=== PATIENT | male | born 1945 | race Caucasian/White ===

== ENCOUNTER → 2017-06-12 | Outpatient (CLI) | payer MEDICARE, BC ==
--- NOTE | 2017-06-12 11:31 | XCELERA REPORT ---
[address] [address] Lower Extremity Venous Evaluation Name: EVERETTE MONDRAGON Age: 71 yrs Gender: Male : 1945 Patient Status: Outpatient Patient Location: Study Date: 06/12/2017 10:36 AM Procedure: Color flow and duplex imaging of the veins of the left lower extremity as well as the right Common Femoral vein. Reason For Study: LLE EDEMA Ordering Physician: JANIA ROBERTS Performed By: Nancy Gore Right Sided Venous Evaluation The right common femoral vein is fully compressible. Spontaneous and phasic flow is present in the right common femoral vein. Left Sided Venous Evaluation Normal vessel filling wall to wall, compression and augmentation as well as Colour flow down to the infrageniculate veins. Interpretation Summary No duplex evidence of DVT or obstruction in the left lower extremity nor in the right Common Femoral vein. : JANIA ROBERTS > Loco Nam
--- NOTE | 2017-06-12 12:17 | RADIOLOGY REPORT (SQ) ---
EXAM DESCRIPTION: KNEE LEFT 4 VIEW COMPLETED DATE/TIME: 06/12/2017 11:28 am REASON FOR STUDY: EDEMA(R60.9),PAIN IN LEFT LEG(M79.605) R60.9 EDEMA, UNSPECIFIED M79.605 PAIN IN LEFT LEG COMPARISON: None. NUMBER OF VIEWS: Four views. TECHNIQUE: AP, lateral, and both oblique radiographic images acquired of the left knee. LIMITATIONS: None. FINDINGS: MINERALIZATION: Normal. BONES: No acute fracture or dislocation. No worrisome bone lesions. Prominent medial osteophytes. JOINT: No effusion. No chondrocalcinosis. OTHER: No other significant finding. IMPRESSION: Medial compartment osteoarthritis. TECHNICAL DOCUMENTATION: JOB ID: [id number] [employer]- All Rights Reserved
== END ==
LOC: SP 10:31
PROVIDERS: ATTEND Internal Medicine Medical Oncology
DX: M79.605 Pain in left leg (principal); M25.562 Pain in left knee; M17.12 Unilateral primary osteoarthritis, left knee; R60.9 Edema, unspecified
CPT/HCPCS: 93971

== ENCOUNTER → 2017-11-13 | Outpatient (CLI) | payer MEDICARE, BC ==
--- NOTE | 2017-11-13 15:38 | RADIOLOGY REPORT (SQ) ---
EXAM DESCRIPTION: ARTERIAL LOWER EXTREM BILAT COMPLETED DATE/TIME: 11/13/2017 3:22 pm REASON FOR STUDY: ULCER L97.222 NON-PRESSURE CHRONIC ULCER OF LEFT CALF W FAT LAYER COMPARISON: None. TECHNIQUE: Dynamic and static richmond scale and color images acquired of the lower extremity arteries. Additional selected spectral images recorded. ABIs recorded. LIMITATIONS: None. FINDINGS: RIGHT LEG: ABIS: Normal, over 1.0. INFLOW ARTERIES: Normal, no obstruction evident. FEMORAL ARTERIES:Multiphasic waveforms. Normal, no velocity elevation to suggest focal stenosis. Norm al color Doppler evaluation. No aneurysm. POPLITEAL ARTERY:Multiphasic waveforms. Normal, no velocity elevation to suggest focal stenosis. Norm al color Doppler evaluation. No aneurysm. PATENT TIBIOPERONEAL TRUNK AND 3 VESSEL RUNOFF: Yes, normal vessels. TBI: Not performed. OTHER: No other significant finding. LEFT LEG: ABIS: Normal, over 1.0. INFLOW ARTERIES: Normal, no obstruction evident. FEMORAL ARTERIES:Multiphasic waveforms. Normal, no velocity elevation to suggest focal stenosis. Norm al color Doppler evaluation. No aneurysm. POPLITEAL ARTERY:Multiphasic waveforms. Normal, no velocity elevation to suggest focal stenosis. Norm al color Doppler evaluation. No aneurysm. PATENT TIBIOPERONEAL TRUNK AND 3 VESSEL RUNOFF: Yes, normal vessels. TBI: Not performed. OTHER: Moderate size left Apple's cyst, about 5 x 3 cm in size. IMPRESSION: NORMAL BILATERAL LOWER EXTREMITY ARTERIAL DOPPLER WITH ABIs. COMMENT: [facility] NORMAL: Greater than 1.0 MINIMAL DISEASE: 0.9 to 1.0 CLAUDICATION: 0.5 to 0.9 SEVERE ARTERIAL DISEASE: Less than 0.5 [facility] NORMAL: Greater than 1.0 (1.2 If Heavy Calcifications) NORMAL TO MILD ISCHEMIA: 0.8 to 1.0 MODERATE ISCHEMIA: 0.4 to 0.8 SEVERE ISCHEMIA: Less than 0.4 TECHNICAL DOCUMENTATION: JOB ID: [id number]- All Rights Reserved
--- NOTE | 2017-11-13 15:43 | RADIOLOGY REPORT (SQ) ---
EXAM DESCRIPTION: VENOUS REFLUX COMPLETED DATE/TIME: 11/13/2017 3:22 pm REASON FOR STUDY: ULCER L97.222 NON-PRESSURE CHRONIC ULCER OF LEFT CALF W FAT LAYER COMPARISON: None. TECHNIQUE: Multiple real-time grayscale sonographic images were obtained for evaluation of the right and left lower extremity. Doppler and duplex evaluation of the venous structures was performed. LIMITATIONS: None. FINDINGS: The right and left common femoral, superficial femoral, popliteal and infrapopliteal veins are patent with normal response to compression and augmentation maneuvers. Right greater saphenous vein: No reflux of the saphenous femoral junction or proximal great saphenous vein in the upper thigh. In the mid right thigh, there is reflux on Valsalva, 3243 milliseconds, right mid thigh greater saphe nous vein measures 11 mm in diameter. In the distal right thigh, there is reflux on Valsalva, 4581 milliseconds, right greater saphenous ve in measures 6 mm in diameter In the proximal right calf, there is reflux in the right greater saphenous vein below the knee, 3219 milliseconds, saphenous vein 5 mm in diameter Right small saphenous vein: NO reflux Left greater saphenous vein: No Left small saphenous vein: No OTHER: 5 x 3 cm Apple's cyst, left popliteal fossa IMPRESSION: Reflux in the right greater saphenous vein as above TECHNICAL DOCUMENTATION: JOB ID: [id number] [employer]- All Rights Reserved
--- NOTE | 2017-11-15 16:31 | RADIOLOGY REPORT (SQ) ---
EXAM DESCRIPTION: PHYSIO ARTERIAL LTD COMPLETE DATE/TIME: 11/15/2017 3:53 pm REASON FOR STUDY: BENJIE L97.222 NON-PRESSURE CHRONIC ULCER OF LEFT CALF W FAT LAYER FINDINGS: Please see combined report for performance of procedure and radiologic supervision and int erpretation. IMPRESSION: Please see combined report for performance of procedure and radiologic supervision and i nterpretation.
== END ==
LOC: SP 12:43
PROVIDERS: ATTEND Surgery
DX: L97.222 Non-pressure chronic ulcer of left calf with fat layer exposed (principal)
CPT/HCPCS: 93922; 93925; 93970

== ENCOUNTER 2018-06-30 12:02 | Emergency (ER) | payer MEDICARE, BC ==
[2018-06-30] MEDS ORDERED: NORMAL SALINE 1000 ML 1,000 ML IV ONE (12:32)
--- NOTE | 2018-06-30 12:32 | ER Document Report ---
ED Medical Screen (RME) - General Mode of Arrival: Wheelchair Information source: Patient, Relative TRAVEL OUTSIDE OF THE [place] IN LAST 30 DAYS: No - General Chief Complaint: Fall Stated Complaint: FALL, DECREASED APPETITE Time Seen by Provider: 06/30/18 12:25 Notes: Patient is a 72 year old male with CLL presents to the emergency department complaining of multiple symptoms including decreased appetite, weakness, vomiting, and a fall. Son states for the last month the patient has had general malaise although recently he has had a decreased appetite and fluid intake. Son states the patient is currently on chemotherapy but is going to start a new chemo medication on 07/01/2018. Son states the patient was vomiting this morning and proceeded to trip and fall. He also complains of some diarrhea, a productive cough and shortness of breath. Patient denies any hematemesis. GENERAL: Alert, interacts well. No acute distress. HEAD: Normocephalic, Atraumatic. NECK: Full range of motion. Supple. Trachea midline. LUNGS: Clear to auscultation bilaterally, no wheezes, rales, or rhonchi. No respiratory distress. HEART: Tachycardic. No murmurs, gallops, or rubs. ABDOMEN: Soft, non-tender. Non-distended. Bowel sounds present in all 4 quadrants. EXTREMITIES: Moves all four extremities spontaneously. Trace pitting edema to the BLE, increased amount to the left leg close to the knee. PSYCH: Normal affect, normal mood. I have greeted and performed a rapid initial assessment of this patient. A comprehensive ED assessment and evaluation of the patient, analysis of test results and completion of the medical decision making process will be conducted by additional ED providers. (DIXON NICHOLS) - Related Data Allergies/Adverse Reactions: No Known Allergies Allergy (Verified 06/30/18 12:02) Past Medical History - Social History Chew tobacco use (# tins/day): No Frequency of alcohol use: None Drug Abuse: None - Past Medical History Cardiac Medical History: Reports: Hx Atrial Fibrillation, Hx Hypercholesterolemia, Hx Hypertension Denies: Hx Heart Attack Pulmonary Medical History: Denies: Hx Asthma Neurological Medical History: Reports: Hx Seizures - 03/2016 TAKING KEPPRA. Denies: Hx Cerebrovascular Accident Endocrine Medical History: Reports: Hx Diabetes Mellitus Type 2 Renal/ Medical History: Denies: Hx Peritoneal Dialysis Malignancy Medical History: Reports Hx Lymphoma GI Medical History: Denies: Hx Hepatitis, Hx Hiatal Hernia, Hx Ulcer Musculoskeltal Medical History: Reports Hx Arthritis - All over Infectious Medical History: Denies: Hx Hepatitis Past Surgical History: Denies: Hx Open Heart Surgery, Hx Pacemaker - CHIP IMPLANTED TO MONITOR AFIB, CARDIOVERTED - Immunizations Hx Diphtheria, Pertussis, Tetanus Vaccination: No - Vital signs Vitals: Pulse Resp BP Pulse Ox 124 H 16 81/63 L 100 06/30/18 12:08 06/30/18 12:08 06/30/18 12:08 06/30/18 12:08 - Vital Signs Vital signs: Temp Pulse Resp BP Pulse Ox 97.8 F 124 H 16 81/63 L 100 06/30/18 12:33 06/30/18 12:08 06/30/18 12:08 06/30/18 12:08 06/30/18 12:08 Doctor's Discharge - Discharge Referrals: MILES LOPEZ MD [Primary Care Provider] - Follow up as needed
[2018-06-30 13:05] LABS: HEMOGLOBIN 10.2 g/dL (13.5-17.0); MEAN CORPUSCULAR HEMOGLOBIN 26.4 pg (27.0-33.4); MEAN CORPUSCULAR HGB CONC 32.8 g/dL (32.0-36.0); MEAN CORPUSCULAR VOLUME 81 fl (80-97); RED BLOOD COUNT 3.85 10^6/uL (4.35-5.55); RED CELL DISTRIBUTION WIDTH 19.5 % (11.5-14.0); WHITE BLOOD COUNT 2.6 10^3/uL (4.0-10.5)
[2018-06-30 13:08] LABS: VENOUS BLOOD BASE EXCESS -5.7 mmol/L; VENOUS BLOOD HCO3 19.3 mmol/L (20-32); VENOUS BLOOD PCO2 35.7 mmHg (35-63); VENOUS BLOOD PH 7.35 (7.30-7.42)
--- NOTE | 2018-06-30 13:13 | RADIOLOGY REPORT (SQ) ---
EXAM DESCRIPTION: ACUTE ABDOMEN SERIES COMPLETED DATE/TIME: 06/30/2018 12:56 pm REASON FOR STUDY: nausea, vomiting, CLL with abd tumors COMPARISON: CT chest abdomen pelvis 09/28/2016 NUMBER OF VIEWS: Three views. TECHNIQUE: Frontal chest, supine abdomen and upright abdomen radiographic images acquired. LIMITATIONS: None. FINDINGS: CHEST: Bandlike atelectasis at the right lung base. Lungs are otherwise well inflated and clear. No cardiomegaly or hilar enlargement. Implanted cardiac monitoring device over the cardiac apex. FREE AIR: None. No abnormal gas collections. BOWEL GAS PATTERN: Grossly nonobstructive bowel gas pattern CALCIFICATIONS: No suspicious calcifications. HARDWARE: None in the abdomen. SOFT TISSUES: No gross mass or suggestion of organomegaly. BONES: No acute fracture. No worrisome bone lesions. OTHER: No other significant finding. IMPRESSION: Bandlike atelectasis at the right lung base. Grossly nonobstructive bowel gas pattern TECHNICAL DOCUMENTATION: JOB ID: [id number] [employer] All Rights Reserved Reading location - IP/workstation name: [email or web address]
[2018-06-30 13:18] LABS: INTERNATIONAL RATION (INR) 1.53; PROTHROMBIN TIME 19.1 SEC (11.4-15.4)
[2018-06-30 13:29] LABS: ALANINE AMINOTRANSFERASE 37 U/L (21-72); ALBUMIN 2.6 g/dL (3.5-5.0); ALKALINE PHOSPHATASE 168 U/L (38-126); ASPARTATE AMINO TRANSFERASE 90 U/L (17-59); BILIRUBIN,DIRECT 1.9 mg/dL (0.0-0.4); BILIRUBIN,TOTAL 2.7 mg/dL (0.2-1.3); BLOOD UREA NITROGEN 48 mg/dL (7-20); CALCIUM 8.7 mg/dL (8.4-10.2); CHLORIDE 94 mmol/L (98-107); GLUCOSE 91 mg/dL (75-110); POTASSIUM 5.1 mmol/L (3.6-5.0); TOTAL PROTEIN 4.6 g/dL (6.3-8.2)
--- NOTE | 2018-06-30 13:31 | ER Document Report ---
ED General - General Chief Complaint: Fall Stated Complaint: FALL, DECREASED APPETITE Time Seen by Provider: 06/30/18 12:25 Mode of Arrival: Wheelchair Information source: Patient, Relative Notes: Patient is a 72-year-old male with a history of CLL followed by [facility] oncology. Patient is currently on active chemotherapy. Patient takes Retuxin infusions as well as Venelex 400mg daily. Patient over this last week has felt a little more "weak and dehydrated". Patient has had 3-4 bouts of nonbloody diarrhea as well as some intermittent vomiting. He denies any pain which is states that he is not hungry. He specifically denies any headache, neck pain, chest pain, abdominal pain, or focal weakness or numbness. Patient did feel little lightheaded today and fell down. He denies hitting his head and denies any pain to his back, hips, or extremities. TRAVEL OUTSIDE OF THE [place] IN LAST 30 DAYS: No - HPI Onset: Other - See above Onset/Duration: Gradual Quality of pain: No pain Severity: Moderate Pain Level: Denies Associated symptoms: Weakness - See above, Other Exacerbated by: Other Relieved by: Denies Similar symptoms previously: No Recently seen / treated by doctor: Yes - Related Data Allergies/Adverse Reactions: No Known Allergies Allergy (Verified 06/30/18 12:02) Past Medical History - General Information source: Patient, Relative - Social History Smoking Status: Former Smoker Cigarette use (# per day): No Chew tobacco use (# tins/day): No Frequency of alcohol use: None Drug Abuse: None Family History: None Patient has suicidal ideation: No Patient has homicidal ideation: No - Past Medical History Cardiac Medical History: Reports: Hx Atrial Fibrillation, Hx Hypercholesterolemia, Hx Hypertension Denies: Hx Heart Attack Pulmonary Medical History: Denies: Hx Asthma Neurological Medical History: Reports: Hx Seizures - 03/2016 TAKING KEPPRA. Denies: Hx Cerebrovascular Accident Endocrine Medical History: Reports: Hx Diabetes Mellitus Type 2 Renal/ Medical History: Denies: Hx Peritoneal Dialysis Malignancy Medical History: Reports Hx Lymphoma GI Medical History: Denies: Hx Hepatitis, Hx Hiatal Hernia, Hx Ulcer Musculoskeletal Medical History: Reports Hx Arthritis - All over Infectious Medical History: Denies: Hx Hepatitis Past Surgical History: Reports: Hx Orthopedic Surgery - left shoulder. Denies: Hx Open Heart Surgery, Hx Pacemaker - CHIP IMPLANTED TO MONITOR AFIB, CARDIOVERTED - Immunizations Hx Diphtheria, Pertussis, Tetanus Vaccination: No Review of Systems - Review of Systems Constitutional: denies: Fever EENT: denies: Eye discharge, Nose discharge Respiratory: denies: Short of breath Gastrointestinal: Vomiting Genitourinary: denies: Dysuria Musculoskeletal: Leg swelling Skin: Other - no hives. denies: Rash Neurological/Psychological: Other - no slurred speech -: Yes All other systems reviewed and negative Physical Exam - Vital signs Vitals: Pulse Resp BP Pulse Ox 124 H 16 81/63 L 100 06/30/18 12:08 06/30/18 12:08 06/30/18 12:08 06/30/18 12:08 Notes: Reviewed vital signs and nursing note as charted by RN. CONSTITUTIONAL: Alert and oriented and responds appropriately to questions. Well -appearing; well-nourished HEAD: Normocephalic; atraumatic EYES: PERRL; conjunctiva is very pale ENT: Normal nose; no rhinorrhea; moist mucous membranes; pharynx without lesions noted NECK: Supple without meningismus; no carotid bruits; non-tender; no cervical lymphadenopathy, no masses CARD: Tachycardic and regular; no murmurs, no clicks, no rubs, no gallops; symmetric distal pulses RESP: Normal chest excursion without splinting or tachypnea; breath sounds clear and equal bilaterally ABD/GI: Normal bowel sounds; non-distended; soft, nonfocal tenderness to the abdomen which the patient states is baseline BACK: The back appears normal and is non-tender to palpation, there is no CVA tenderness EXT: Normal ROM in all joints; non-tender to palpation; mild edema to the left leg which the patient and family states is baseline SKIN: Normal color for age and race; warm; capillary refill < 2 seconds; no acute lesions noted NEURO: CN II through XII are intact. Moves all extremities equally; Motor and sensory function intact PSYCH: The patient's mood and manner are appropriate. Grooming and personal hygiene are appropriate. Course - Re-evaluation Re-evalutation: 06/30/18 13:31 Given the history and physical examination we will order basic labs, imaging, and an EKG. I would like to evaluate for any obvious acute anemia or acute renal failure. 06/30/18 14:11 Patient appears to be in acute renal failure. Patient's bilirubin and transaminitis is also elevated. Patient has been afebrile but a lactic acid was ordered in triage. I called the lab and they state that the patient's hemoglobin is 10. I will provide a liter of fluid and provide a dose of Zosyn. I have ordered a CT scan of the abdomen and pelvis without contrast given the patient's nausea, vomiting, and elevated creatinine. 06/30/18 16:[address] scan is recorded. This mass appears to have enlarged. I am also concerned given the acute renal failure about some tumor lysis syndrome. We have provided fluids. I have provided antibiotics initially as a one-time dose given the lactic acid. This may be kidney related and tumor related. Pending ultrasound. I have called and spoken to Dr. Dailey the patient's local oncologist. She states given the mass with compression, the acute kidney failure, she would like the patient transferred to [facility]. - Vital Signs Vital signs: Temp Pulse Resp BP Pulse Ox 97.8 F 124 H 21 H 98/76 L 96 06/30/18 12:33 06/30/18 12:08 06/30/18 16:00 06/30/18 14:00 06/30/18 16:00 - Laboratory Result Diagrams: 06/30/18 12:44 06/30/18 12:44 Laboratory results interpreted by me: 06/30/18 06/30/18 06/30/18 12:44 12:44 12:44 WBC 2.6 L RBC 3.85 L Hgb 10.2 L Hct 31.0 L MCH 26.4 L RDW 19.5 H Plt Count 99 L Band Neutrophils % 46 H Lymphocytes % (Manual) 11 L Monocytes % (Manual) 0 L Metamyelocytes % 1 H Abs Lymphs (Manual) 0.3 L Abs Monocytes (Manual) 0.0 L PT 19.1 H VBG HCO3 Sodium 132.3 L Potassium 5.1 H Chloride 94 L Carbon Dioxide 18 L Anion Gap 20 H BUN 48 H Creatinine 1.87 H Est GFR ( Amer) 43 L Est GFR (Non-Af Amer) 36 L Lactic Acid Total Bilirubin 2.7 H Direct Bilirubin 1.9 H AST 90 H Alkaline Phosphatase 168 H Total Protein 4.6 L Albumin 2.6 L 06/30/18 06/30/18 12:44 12:44 WBC RBC Hgb Hct MCH RDW Plt Count Band Neutrophils % Lymphocytes % (Manual) Monocytes % (Manual) Metamyelocytes % Abs Lymphs (Manual) Abs Monocytes (Manual) PT VBG HCO3 19.3 L Sodium Potassium Chloride Carbon Dioxide Anion Gap BUN Creatinine Est GFR ( Amer) Est GFR (Non-Af Amer) Lactic Acid 6.9 H Total Bilirubin Direct Bilirubin AST Alkaline Phosphatase Total Protein Albumin Critical Care Note - Critical Care Note Total time excluding time spent on procedures (mins): 45 Discharge - Discharge Referrals: MILES LOPEZ MD [Primary Care Provider] - Follow up as needed
[2018-06-30 13:35] LABS: CARBON DIOXIDE 18 mmol/L (22-30); SODIUM 132.3 mmol/L (137-145)
[2018-06-30 13:36] LABS: ANION GAP 20 (5-19)
[2018-06-30 14:03] LABS: ABSOLUTE LYMPHOCYTES# (MANUAL) 0.3 10^3/uL (0.5-4.7); ABSOLUTE NEUTROPHILS# (MANUAL) 2.3 10^3/uL (1.7-8.2); BASOPHILS % (MANUAL) 0 % (0-2); EOSINOPHILS % (MANUAL) 0 % (0-6); LYMPHOCYTES % (MANUAL) 11 % (13-45); METAMYELOCYTES % (MANUAL) 1 % (0); SEGMENTED NEUTROPHILS % (MAN) 42 % (42-78); TOTAL CELLS COUNTED 100
[2018-06-30 14:04] LABS: TOXIC GRANULATION 2+; TOXIC VACUOLATION PRESENT
[2018-06-30 14:07] LABS: PLATELET COMMENT DECREASED
[2018-06-30] MEDS ORDERED: PIPERACILLIN/TAZOBACTAM 3.375 GM VIAL IV ONE (14:11)
[2018-06-30 14:12] LABS: ANISOCYTOSIS 1+; HYPOCHROMASIA 1+; POIKILOCYTOSIS SLIGHT; POLYCHROMASIA SLIGHT
[2018-06-30 14:13] LABS: BURR CELLS SLIGHT; OVALOCYTES SLIGHT
[2018-06-30 14:16] LABS: NUCLEATED RED BLOOD CELLS 0 /100 WBC (0)
[2018-06-30 14:17] LABS: MONOCYTES % (MANUAL) 0 % (3-13)
[2018-06-30 14:18] LABS: BAND NEUTROPHILS % (MANUAL) 46 % (3-5)
[2018-06-30 14:26] LABS: PLATELET COUNT 99 10^3/uL (150-450)
--- NOTE | 2018-06-30 15:27 | RADIOLOGY REPORT (SQ) ---
EXAM DESCRIPTION: CT ABD/PELVIS NO ORAL OR IV COMPLETED DATE/TIME: 06/30/2018 3:01 pm REASON FOR STUDY: 11; CLL; diarrhea and vomiting; increased bilirubi COMPARISON: 09/28/2016 TECHNIQUE: CT scan of the abdomen and pelvis performed without intravenous or oral contrast. Images reviewed with lung, soft tissue, and bone windows. Reconstructed coronal and sagittal MPR images revi ewed. All images stored on PACS. All CT scanners at this facility use dose modulation, iterative reconstruction, and/or weight based d osing when appropriate to reduce radiation dose to as low as reasonably achievable (ALARA). [facility]: Dose Right [facility]: CareDose [facility]: Dose Right [facility]: Teradose 4D [facility]: Smart Technologies RADIATION DOSE: CT Rad equipment meets quality standard of care and radiation dose reduction techniq ues were employed. CTDIvol: 19.6 mGy. DLP: 1158 mGy-cm.mGy. LIMITATIONS: None. FINDINGS: LOWER CHEST: No significant findings. No nodules or infiltrates. NON-CONTRASTED LIVER, SPLEEN, ADRENALS: Diffuse fatty infiltration of the liver. Evaluation limited by lack of IV contrast.. PANCREAS: No peripancreatic fluid collection. GALLBLADDER: No identified stones by CT criteria. No inflammatory changes to suggest cholecystitis. RIGHT KIDNEY AND URETER: No suspicious masses. Assessment limited by lack of IV contrast. No signif icant calcifications. No hydronephrosis or hydroureter. LEFT KIDNEY AND URETER: No suspicious masses. Assessment limited by lack of IV contrast. No signifi cant calcifications. Moderate left hydronephrosis - hydroureter. AORTA AND RETROPERITONEUM: No aneurysm. Multifocal enlarged bulky retroperitoneal adenopathy, measur ing up to at 8 cm in greatest dimension. BOWEL AND PERITONEAL CAVITY: No evidence for bowel obstruction. Multiple peritoneal and mesenteric n odules -nodes. Trace free fluid. APPENDIX: Not visualized. PELVIS, BLADDER, AND ABDOMINAL WALL:Enlarged left pelvic mass, currently measuring 13 cm greatest dim ension. Multiple additional enlarged pelvic lymph nodes. Trace free fluid. Bladder compressed in sh ifted to the right side of the pelvis. BONES: No acute findings. OTHER: No other significant finding. IMPRESSION: Enlarged left pelvic mass, currently measuring 13 cm greatest dimension. Moderate left hydronephrosis - hydroureter which appears compressive from left pelvic mass.Multifocal enlarged bulk y retroperitoneal adenopathy, measuring up to at 8 cm in greatest dimension.No evidence for bowel obs truction. Multiple peritoneal and mesenteric nodules -nodes. Trace free fluid. COMMENT: Quality ID # [id number]: Final reports with documentation of one or more dose reduction techniques (e.g., Automated exposure control, adjustment of the mA and/or kV according to patient size, use of iterative reconstruction technique) TECHNICAL DOCUMENTATION: JOB ID: [id number] [place]-72 2010 [employer]- All Rights Reserved Reading location - IP/workstation name: [email or web address]
[2018-06-30] MEDS ORDERED: NORMAL SALINE 1000 ML 500 ML IV ONE (17:08)
--- NOTE | 2018-06-30 17:13 | RADIOLOGY REPORT (SQ) ---
EXAM DESCRIPTION: U/S ABDOMEN LIMITED W/O DOP COMPLETED DATE/TIME: 06/30/2018 4:38 pm REASON FOR STUDY: 11; elevated liver enzymes and bilirubin COMPARISON: Earlier CT TECHNIQUE: Dynamic and static grayscale images acquired of the right upper quadrant and recorded on PACS. Additional selected color Doppler and spectral images recorded. LIMITATIONS: Study limited due to acoustical interference from fat or from air in the bowel. FINDINGS: PANCREAS: Parts or all of the pancreas poorly seen secondary to acoustical interference fr om fat or from air in the bowel. LIVER: Echotexture is coarse with increased echogenicity consistent with fatty infiltration. No mass es. LIVER VASCULATURE: Normal directional flow of the main portal vein and hepatic veins. GALLBLADDER: No shadowing stones. Minimal gallbladder sludge. Normal wall thickness. No pericholecy stic fluid. ULTRASOUND-DETECTED ROQUE'S SIGN: Negative. INTRAHEPATIC DUCTS AND COMMON DUCT: CBD and intrahepatic ducts normal caliber. No filling defects. INFERIOR VENA CAVA: Normal flow. AORTA: No aneurysm. RIGHT KIDNEY: Normal size. Normal echogenicity. No solid or suspicious masses. No hydronephrosis. No calcifications. PERITONEAL CAVITY AND RIGHT PLEURAL SPACE: No ascites or effusions. OTHER: Bulky retroperitoneal lymphadenopathy. IMPRESSION: FATTY LIVER.No shadowing stones. Minimal gallbladder sludge. Normal wall thickness. No pericholecystic fluid. PANCREAS PARTIALLY OR COMPLETELY OBSCURED. Bulky retroperitoneal adenopathy. TECHNICAL DOCUMENTATION: JOB ID: [id number] [place]-72 2010 [employer]- All Rights Reserved Reading location - IP/workstation name: [email or web address]
[2018-06-30 17:20] LABS: AMORPHOUS SEDIMENT,URINE TRACE /HPF; APPEARANCE,URINE CLOUDY; BILIRUBIN,URINE NEGATIVE (NEGATIVE); COLOR,URINE AMBER; GLUCOSE, URINE NEGATIVE (NEGATIVE); KETONES,URINE NEGATIVE (NEGATIVE); LEUKOCYTE ESTERASE,URINE NEGATIVE (NEGATIVE); NITRITE,URINE NEGATIVE (NEGATIVE); PROTEIN,URINE 30 mg/dL (NEGATIVE); URINE SPECIFIC GRAVITY 1.014
--- NOTE | 2018-06-30 23:44 | EKG REPORT ---
SEVERITY:- ABNORMAL ECG - SINUS TACHYCARDIA LEFT BUNDLE BRANCH BLOCK : Confirmed by: Lisa Bennett 30-Jun-2018 23:43:46
[2018-07-01] MEDS ORDERED: PIPERACILLIN/TAZOBACTAM 3.375 GM VIAL IV ONE ×2 (07:25→15:00)
[2018-07-01 09:32] LABS: ALANINE AMINOTRANSFERASE 50 U/L (21-72); ALKALINE PHOSPHATASE 174 U/L (38-126); ANION GAP 13 (5-19); ASPARTATE AMINO TRANSFERASE 102 U/L (17-59); BILIRUBIN,DIRECT 1.9 mg/dL (0.0-0.4); BILIRUBIN,TOTAL 2.3 mg/dL (0.2-1.3); BLOOD UREA NITROGEN 55 mg/dL (7-20); CALCIUM 8.1 mg/dL (8.4-10.2); CARBON DIOXIDE 20 mmol/L (22-30); CHLORIDE 100 mmol/L (98-107); GLUCOSE 81 mg/dL (75-110); POTASSIUM 4.4 mmol/L (3.6-5.0); TOTAL PROTEIN 3.8 g/dL (6.3-8.2)
--- NOTE | 2018-07-01 10:39 | ER Document Report ---
Doctor's Note Notes: 07/01/18 17:31 Spoke with [facility], Dr. Hastings, states that he does not feel the patient needs to be switched to an emergent transfer status at this time to have a nephrostomy tube placed right now, discussed with him and with bedboard, states that bed should be coming available around 8:00. They will actually try to get him the bedside assigned around 6:00 so that we can work on arranging transport sooner. They do agree that the patient is at risk for worsening renal failure and bacteremia from an obstructed urinary tract infection should this go on for much longer but he feels the patient is likely safe to wait until tomorrow morning to have either a stent or nephrostomy tube placed. I will continue watching this patient closely, he is minimally tachycardic, his hypotension has resolved, we will continue to use antibiotics and gentle hydration. Patient is denying any pain at this time. Lactic acid is improving. (JANE SALAZAR) 07/01/18 10:38 Medical Rounds: Patient is alert and oriented. He does not have any complaints. Discussed discharge plan, patient understands and is agreeable. 07/01/18 16:21 Spoke with [facility] regarding the transfer for the patient. (DIXON NICHOLS)
[2018-07-01 10:54] LABS: PATH REVIEW PATHOLOGIST REVIEWED
[2018-07-01] MEDS ORDERED: NORMAL SALINE 1000 ML 1,000 ML IV ONE (16:17)
[2018-07-02 02:05] VITALS: BP 103/67
[2018-07-02] MEDS ORDERED: CEFTRIAXONE 1 GM/D5W RTU 1 GM/50 ML RTUPB IV SCH (10:00)
== END 2018-07-02 03:10 | disposition short-term general hospital (02) ==
LOC: ER 12:02
DX: R19.09 Other intra-abdominal and pelvic swelling, mass and lump (principal); N17.9 Acute kidney failure, unspecified; N30.00 Acute cystitis without hematuria; C91.10 Chronic lymphocytic leukemia of B-cell type not having achieved remission; Z79.899 Other long term (current) drug therapy; N13.5 Crossing vessel and stricture of ureter without hydronephrosis; D64.9 Anemia, unspecified; R74.8 Abnormal levels of other serum enzymes; R53.1 Weakness; R19.7 Diarrhea, unspecified; R60.0 Localized edema; R10.819 Abdominal tenderness, unspecified site; R11.2 Nausea with vomiting, unspecified; R42 Dizziness and giddiness; R00.0 Tachycardia, unspecified; I10 Essential (primary) hypertension; E11.9 Type 2 diabetes mellitus without complications; Z87.891 Personal history of nicotine dependence
CPT/HCPCS: 93005; 99285; 96361; 96365; 96366; 36415; 87040; 87086; 82962; 83615; 84550; 85025; 85610; 87088; 80053; 81001; 84484; 87186; 82803; 83605; 74022; 76705; 74176; 93010; J7030 ×2; J2543 ×2